=== PATIENT | female | born 1980 | race African-American/Black ===

== ENCOUNTER 2020-06-18 12:53 | Emergency (ER) | payer OTHER, SELFPAY ==
--- OUTSIDE RECORDS SUMMARY | 2020-06-18 12:56 | XMS REPORT | Clinical Summary ---
:1980 Author Organization [facility] Address [address] [place] [address] Care Team Providers Name Role Phone Unavailable Primary Care Provider Unavailable Allergies No Known Allergies Medications Medication Sig Dispensed Refills Start Date End Date Status ibuprofen (MOTRIN) 800 Take 1 tablet by 20 tablet 0 02/06/2019 Active mg tabletIndications: mouth every 6 Vaginal after hours as needed for Pain. ferrous sulfate 325 mg Take 1 tablet by 60 tablet 0 02/06/2019 Active (65 mg iron) mouth daily (with tabletIndications: breakfast). Vaginal after Active Problems Patient Care Coordination Note Polyhydramnios has resolved at 36 weeks Problem Noted Date H/O section 02/04/2019 AMA (advanced maternal age) multigravida 35+ 9 Overview: Patient declined genetic testing. On anatomy sono performed at [facility], single cardiac echogenic focus noted. She received genetic counseling, and risk of T21 was 1:94 based on age and this soft marker. Based on age alone, risk is 1:168 for T21 and 1:82 of any chromo somal disorder. Prior likely LTCS x 1 for PRCD 10/03/2018 Overview: Op note review, prior x 1 2/2 to NRFHT Desires TOLAC, success score is 38. 7 01/21/19: Pt desired repeat C/S. Schedule d for 02/04/19 however after further discussions and time pt desires a TOLAC success is 54% with induction and 64%wi thout Cerclage in Prior but missed GA window in th is - on 10/03/2018 17-OH P Overview: In first , with 22wk loss. Had cerclage in her third which went to term. Was also on 17-OHP. Candidate for history indicated cerclage however pt delayed procedure due to insurance iss ues and now is too late for cerclage joleen cement. Last cervical length 41mm per outside records, will order ultrasound for follow up CL 11/05/2018 Ultrasound showed CL 3.6 cm No further CL measurement indicated S/p weekly 17-OHP until 32wks, discontin ued by MFM Per Dr. Torres 12/31/18, will not re-st art 17-OHP at this time Maternal morbid obesity, BMI 40 10/03/2018 Overview: Regular Glucola at 26-8 weeks: 121 Growth US 32 weeks: >95th%ile; polyhydra mnios testing ordered, read from 10/20 Will be for repeat C/S on 02/04/19 uterine contractions Immunizations Name Administration Dates Next Due Influenza Vaccine 08/12/2016 (Deferred: Patient Refused), 10/21/2014 (Deferred: Contraindication - sick), (Deferred: Patient Refused) Family History Medical History Relation Name Comments No Known Problems Brother No Known Problems Daughter Hypertension Father Lipids Father Diabetes Maternal Grandfather Diabetes Maternal Grandmother No Known Problems Mother Diabetes Paternal Grandfather Diabetes Paternal Grandmother No Known Problems Sister Relation Name Status Comments Brother Alive Daughter Alive Father Alive Maternal Grandfather Maternal Grandmother Mother Alive Paternal Grandfather Paternal Grandmother Sister Alive x2 Social History Tobacco Use Types Packs/Day Years Used Date Never Smoker Smokeless Tobacco: Never Used Tobacco Cessation: Counseling Given: No Alcohol Use Drinks/Week oz/Week Comments Yes social Food Insecurity Answer Date Recorded Within the past 12 months, you worried that your food would Never true 12/11/2018 run out before you got money to buy more. Within the past 12 months, the food you bought just didn't N ever true 12/11/2018 last and you didn't have money to get more. Sex Assigned at Date Recorded Not on file Job Start Date Occupation Industry Not on file Not on file Not on file Travel History Travel Start Travel End No recent travel history available. Last Filed Vital Signs Not on file Plan of Treatment Health Maintenance Due Date Last Done Comments Cervical Cancer Scrn (3 Yrs) 2002 IMM Influenza Seasonal Jul to November (>/= 19 yrs) 07/02/2020 Results Not on fileafter 06/18/2019 Insurance Payer Benefit Plan / Subscriber ID Effective Dates Phone Addre ss Type Group [employer] SELF-PAY xxxxxxxxx 2018-Presen [phone] [id number] [employer] SELF-PAY UNSCREENED [address] [place] [address] [employer] SELF-PA[employer] xxxxxx 2019-20 [phone] [employer] SELF-PAY SCREENED [address] [place] [address] Advance Directives Code Status Date Activated Date Inactivated Comments Full Code 02/05/2019 11:51 AM 02/07/2019 3:22 PM Full Code 02/04/2019 8:27 AM 02/05/2019 11:51 AM
--- OUTSIDE RECORDS SUMMARY | 2020-06-18 12:56 | XMS REPORT | Continuity of Care Document ---
:1980 Author Organization [facility] t Address [address] [place] [address] Care Team Providers Name Role Phone Unavailable Unavailable Unavailable Problems Condition Condition Condition Status Onset Resolution Last Treating Co mments Source Name Details Category Date Date Treatment Clinician Date H/O H/O Disease Active Omar 02-04 Health section section 00:00: 00 AMA AMA Disease Active Overview: Omar (advanced (advanced 10-03 Patient Hea lth maternal maternal 00:00: declined age) age) 00 genetic multigravi multigravi testing.O da 35+ da 35+ n anatomy sono performed at [facility], single cardiac echogenic focus noted. She received genetic counselin g, and risk of T21 was 1:94 based on age and this soft marker. Based on age alone, risk is 1:168 for T21 and 1:82 of any chromosom al disorder. Prior Prior Disease Active Overview: Omar likely likely 10-03 Op note Health LTCS x 1 LTCS x 1 00:00: review, for PRCD for PRCD 00 prior x 1 2/2 to NRFHT Desires TOLAC, success score is 38.7 01/21/19: Pt desired repeat C/S. Scheduled for 02/04/19 however after further discussio ns and time pt desires a TOLAC success is 54% with induction and 64%withou t Cerclage Cerclage Disease Active Overview: [facility] in Prior in Prior 10-03 In first Heal th 00:00: but missed but missed 00 , with GA window GA window 22wk in this in this loss. Had cerclage - on 17-OH - on 17-OH in her P P third which went to term. Was also on 17-OHP. Candidate for history indicated cerclage however pt delayed procedure due to insurance issues and now is too late for cerclage placement . Last cervical length 41mm per outside records, will order ultrasoun d for follow up CL 9Ultrasou nd showed CL 3.6 cmNo further CL measureme nt indicated S/p weekly 17-OHP until 32wks, discontin ued by [facility] 12/31/18, will not re-start 17-OHP at this time Maternal Maternal Disease Active Overview: [facility] morbid morbid - Regular Health obesity, obesity, 00:00: Glucola BMI 40 BMI 40 00 at 26-8 weeks: 121Growth US 32 weeks: >95th%ile ; polyhydra mniosAnte marina testing ordered, read from 12/31/1807/11Wigrayson be for repeat C/S on 02/04/19 Disease Active [facility] uterine uterine Health contractio contractio ns ns Allergies, Adverse Reactions, Alerts This patient has no known allergies or adverse reactions. Family History Family Member Diagnosis Comments Start Date Stop Date Source Natural brother No Known Problems [facility] Natural daughter No Known Problems [facility] Natural father Hypertension [facility] father Lipids [facility] Maternal grandfather Diabetes [facility] Maternal grandmother Diabetes [facility] Natural mother No Known Problems [facility] Paternal grandfather Diabetes [facility] Paternal grandmother Diabetes [facility] Natural sister No Known Problems [facility] Social History Social Habit Start Date Stop Date Quantity Comments Source Sex Assigned At [facility] Alcohol intake 2019-03-19 2019-03-19 Current drinker Ramon bee [facility] 00:00:00 00:00:00 of alcohol (finding) History [facility] Food 2018-12-11 2018-12-11 1 [facility] Worry 00:00:00 00:00:00 History [facility] Food 2018-12-11 2018-12-11 1 [facility] Scarcity 00:00:00 00:00:00 Alcohol Comment 2014-10-21 2014-10-[address] [facility]th 00:00:00 00:00:00 Smoking Status Start Date Stop Date Source Never smoker [facility] Medications Ordered Filled Start Stop Current Ordering Indication Dosage Frequency Signature Comments Components Source Medication Medication Date Date Medication? Clinician (SIG) Name Name ibuprofen Yes Vaginal 800mg Take 1 [facility] (MOTRIN) 5-08 after tablet by [employer] 800 mg 00:00: mouth tablet 00 every 6 hours as needed for Pain. ferrous Yes Vaginal 325mg QD Take 1 [facility] is sulfate 325 5-08 after tablet by [employer] mg (65 mg 00:00: mouth iron) 00 daily tablet (with breakfast) . Procedures This patient has no known procedures. Plan of Care Planned Activity Planned Date Details Comments Source Future Scheduled Test 2020-07-02 00:00:00 IMM Influenza [facility] Seasonal Jul to November (>/= 19 yrs) [code = IMM Influenza Seasonal Jul to November (>/= 19 yrs)] Future Scheduled Test 2002 00:00:00 Screening for [facility] malignant neoplasm of cervix (procedure) [code = 761306676] Encounters Start End Encounter Admission Attending Care Care Encounter Source Date/Time Date/Time Type Type Clinicians Facility Department ID 2019-02-04 Inpatient [facility] [id number] H arris 00:00:00 [facility] 2019-02-04 Inpatient [facility] [id number] H arris 00:00:00 [facility] 2019-01-28 Inpatient [facility] [id number] H arris 00:00:00 [facility] 2019-03-20 2019-03-20 Outpatient [facility] [id number] [place] 00:00:00 00:00:00 [facility] 2019-02-15 2019-02-15 Outpatient [facility] [id number] [place] 15:54:45 15:54:45 [facility] 2019 2019 Outpatient [facility] [id number] [place] 00:00:00 00:00:00 [facility] 2019-02-04 2019-02-04 Inpatient [facility] [id number] [place] 06:46:30 06:46:30 Health 2019-02-04 2019-02-04 Outpatient [facility] [id number] [place] 00:00:00 00:00:00 [facility] 2019-01-28 2019-01-28 Outpatient [facility] [id number] [place] 13:29:05 13:29:05 Health 2019-01-28 2019-01-28 Outpatient [facility] [id number] [place] 00:00:00 00:00:00 [facility] 2019-01-23 2019-01-23 Outpatient [facility] [id number] [place] 00:00:00 00:00:00 [facility] 2019-01-21 2019-01-21 Outpatient [facility] [id number] [place] 12:38:21 12:38:21 [facility] 2019-01-21 2019-01-21 Outpatient [facility] [id number] [place] 10:21:08 10:21:08 [facility] 2019-01-14 2019-01-14 Outpatient [facility] [id number] [place] 11:21:00 11:21:00 [facility] 2019-01-14 2019-01-14 Outpatient [facility] [id number] [place] 10:50:05 10:50:05 [facility] 2019-01-28 2019-01-14 Inpatient [facility] [id number] [place] 15:58:00 00:00:00 [facility] 2019-01-14 2019-01-14 Outpatient [facility] [id number] [place] 00:00:00 00:00:00 [facility] 2019-01-07 2019-01-07 Outpatient [facility] [id number] [place] 10:41:48 10:41:48 [facility] 2018-12-31 2018-12-31 Outpatient [facility] [id number] [place] 12:28:00 12:28:00 [facility] 2018-12-31 2018-12-31 Outpatient [facility] [id number] [place] 10:47:51 10:47:51 [facility] 2018-12-27 2018-12-27 Outpatient [facility] [id number] [place] 00:00:00 00:00:00 [facility] 2018-12-24 2018-12-24 Outpatient [facility] [id number] [place] 14:27:02 14:27:02 [facility] 2018-12-24 2018-12-24 Outpatient [facility] [id number] [place] 00:00:00 00:00:00 [facility] 2018-12-17 2018-12-17 Outpatient [facility] [id number] [place] 14:16:35 14:16:35 [facility] 2018-12-17 2018-12-17 Outpatient [facility] [id number] [place] 13:10:11 13:10:11 [facility] 2018-12-17 2018-12-17 Outpatient [facility] [id number] [place] 09:32:49 09:32:49 [facility] 2018-12-17 2018-12-17 Outpatient [facility] [id number] [place] 00:00:00 00:00:00 [facility] 2018-12-11 2018-12-11 Outpatient [facility] [id number] [place] 13:24:26 13:24:26 [facility] 2018-12-03 2018-12-03 Outpatient [facility] [id number] [place] 10:41:45 10:41:45 [facility] 2018-11-28 2018-11-28 Outpatient [facility] [id number] [place] 00:00:00 00:00:00 [facility] 2018-11-21 2018-11-21 Outpatient [facility] [id number] [place] 10:31:00 10:31:00 [facility] 2018-11-21 2018-11-21 Outpatient [facility] [id number] [place] 09:52:42 09:52:42 [facility] 2018-11-15 2018-11-15 Outpatient [facility] [id number] [place] 09:44:01 09:44:01 [facility] 2018-11-14 2018-11-14 Outpatient [facility] [id number] [place] 00:00:00 00:00:00 [facility] 2018-11-08 2018-11-08 Outpatient [facility] [id number] [place] 09:41:17 09:41:17 [facility] 2018-11-05 2018-11-05 Outpatient [facility] [id number] [place] 14:35:16 14:35:16 [facility] 2018-11-05 2018-11-05 Outpatient [facility] [id number] [place] 00:00:00 00:00:00 [facility] 2018-11-01 2018-11-01 Outpatient [facility] [id number] [place] 10:14:38 10:14:38 [facility] 2018-10-31 2018-10-31 Outpatient [facility] [id number] [place] 00:00:00 00:00:00 [facility] 2018-10-26 2018-10-26 Outpatient [facility] [id number] [place] 00:00:00 00:00:00 [facility] 2018-10-25 2018-10-25 Outpatient [facility] [id number] [place] 14:20:37 14:20:37 [facility] 2018-10-24 2018-10-24 Outpatient [facility] [id number] [place] 10:18:22 10:18:22 [facility] 2018-10-17 2018-10-17 Outpatient [facility] [id number] [place] 10:30:22 10:30:22 [facility] 2018-10-16 2018-10-16 Outpatient [facility] [id number] [place] 00:00:00 00:00:00 Health 2018-10-15 2018-10-15 Outpatient [facility] [id number] [place] 00:00:00 00:00:00 Health 2018-10-14 2018-10-14 Outpatient [facility] [id number] [place] 22:39:03 22:39:03 Health 2018-10-14 2018-10-14 Outpatient [facility] [id number] [place] 00:00:00 00:00:00 Health 2018-10-10 2018-10-10 Outpatient [facility] [id number] [place] 10:58:02 10:58:02 Health 2018-10-10 2018-10-10 Outpatient [facility] [id number] [place] 00:00:00 00:00:00 Health 2018-10-03 2018-10-03 Outpatient [facility] [id number] [place] 15:12:03 15:12:03 Health 2018-09-18 2018-09-18 Outpatient [facility] [id number] [place] 12:11:16 12:11:16 Health Results This patient has no known results.
[2020-06-18 14:28] LABS: Basophils % 0.4 % (0-1.3); Hematocrit 36.1 % (36.0-45.0); MPV 9.5 fL (7.6-11.3); RBC Red Blood Cell Count 4.44 M/uL (3.86-4.86)
[2020-06-18 15:02] LABS: BUN Blood Urea Nitrogen 11 mg/dL (7-18); Bicarbonate 27 mmol/L (21-32); Glucose Level 90 mg/dL (74-106); HCG, Quantitative 6900 mIU/mL (1-3); Potassium 3.7 mmol/L (3.5-5.1); Sodium Level 139 mmol/L (136-145)
[2020-06-18 15:28] LABS: Urine Blood 2+ (NEG); Urine Glucose NEGATIVE (NEG); Urine Protein NEGATIVE (NEG); Urine Specific Gravity 1.025 (1.005-1.030)
--- NOTE | 2020-06-18 16:21 | EDPHYS ---
Physician Documentation [facility] Name: Genna Mon Age: 40 yrs Sex: Female : 1980 Arrival Date: 06/18/2020 Time: 12:56 Bed 23 Private MD: ED Physician Darrin Mejia HPI: 06/18 14:17 This 40 yrs old Black Female presents to ER via Ambulatory with complaints of Vaginal kb Bleeding, + Preg <12wks, Abdominal Cramping. 14:17 The patient presents to the emergency department with vaginal bleeding, that is light. kb The estimated gestational age is 11 weeks. course: care: private OB physician, Leakage of Fluid: none appreciated, Ultrasound: the patient has not had an ultrasound, Risk/complications: no obvious risks or complications are appreciated. Previous pregnancies: in previous pregnancies patient has had vaginal delivery, . Associated signs and symptoms: Pertinent positives: vaginal bleeding, Pertinent negatives: abdominal pain. The patient has not experienced similar symptoms in the past. The patient has not recently seen a physician. DITCHER: 13:07 LMP 04/2020 em 14:17 5, 2, Living 2 kb Historical: - Allergies: 13:07 No Known Allergies; em - Home Meds: 13:07 None [Active]; em - PMHx: 13:07 None; em - PSHx: 13:07 None; em - Immunization history:: Last tetanus immunization: up to date Flu vaccine is not up to date. - Social history:: Smoking status: Patient denies any tobacco usage or history of. ROS: 14:16 Constitutional: Negative for fever, chills, and weight loss, Cardiovascular: Negative kb for chest pain, palpitations, and edema, Respiratory: Negative for shortness of breath, cough, wheezing, and pleuritic chest pain, Abdomen/GI: Negative for abdominal pain, nausea, vomiting, diarrhea, and constipation, Back: Negative for injury and pain, MS/Extremity: Negative for injury and deformity, Skin: Negative for injury, rash, and discoloration, Neuro: Negative for headache, weakness, numbness, tingling, and seizure. 14:16 : Positive for vaginal bleeding. Exam: 14:16 Constitutional: This is a well developed, well nourished patient who is awake, alert, kb and in no acute distress. Head/Face: Normocephalic, atraumatic. Chest/axilla: Normal chest wall appearance and motion. Nontender with no deformity. No lesions are appreciated. Cardiovascular: Regular rate and rhythm with a normal S1 and S2. No gallops, murmurs, or rubs. Normal PMI, no JVD. No pulse deficits. Respiratory: Lungs have equal breath sounds bilaterally, clear to auscultation and percussion. No rales, rhonchi or wheezes noted. No increased work of breathing, no retractions or nasal flaring. Abdomen/GI: Soft, non-tender, with normal bowel sounds. No distension or tympany. No guarding or rebound. No evidence of tenderness throughout. Back: No spinal tenderness. No costovertebral tenderness. Full range of motion. Skin: Warm, dry with normal turgor. Normal color with no rashes, no lesions, and no evidence of cellulitis. MS/ Extremity: Pulses equal, no cyanosis. Neurovascular intact. Full, normal range of motion. Neuro: Awake and alert, GCS 15, oriented to person, place, time, and situation. Cranial nerves II-XII grossly intact. Motor strength 5/5 in all extremities. Sensory grossly intact. Cerebellar exam normal. Normal gait. Vital Signs: 13:03 BP 140 / 86; Pulse 77; Resp 18; Temp 98.8; Pulse Ox 99% on R/A; Weight 99.79 kg; Height em 5 ft. 2 in. (157.48 cm); Pain 2/10; 14:05 BP 108 / 53; Pulse 70; Resp 17; Pulse Ox 100% on R/A; tw2 15:02 BP 120 / 72; Pulse 68; Resp 17; Pulse Ox 100% on R/A; tw2 16:25 BP 123 / 80; Pulse 68; Resp 17; Pulse Ox 100% on R/A; tw2 13:03 Body Mass Index 40.24 (99.79 kg, 157.48 cm) em MDM: 13:52 Patient medically screened. kb 14:16 Data reviewed: vital signs, nurses notes. Data interpreted: Pulse oximetry: on room air kb is 99 %. Interpretation: normal. 16:19 Counseling: I had a detailed discussion with the patient and/or guardian regarding: the kb historical points, exam findings, and any diagnostic results supporting the discharge/admit diagnosis, lab results, radiology results, the need for outpatient follow up, an OB/Gyne specialist, to return to the emergency department if symptoms worsen or persist or if there are any questions or concerns that arise at home. 06/18 13:07 Order name: Quantitative Hcg; Complete Time: 15:06 kb 06/18 13:07 Order name: Abo/rh Typing; Complete Time: 15:06 kb 06/18 13:07 Order name: Basic Metabolic Panel; Complete Time: 15:06 kb 06/18 13:07 Order name: CBC with Diff; Complete Time: 14:33 kb 06/18 14:45 Order name: Urine Dipstick--Ancillary (enter results); Complete Time: 15:30 em1 06/18 14:45 Order name: Urine --Ancillary (enter results); Complete Time: 15:30 em1 06/18 13:07 Order name: Urine Test (obtain specimen); Complete Time: 14:44 kb 06/18 13:07 Order name: IV Saline Lock; Complete Time: 14:07 kb 06/18 13:07 Order name: Labs collected and sent; Complete Time: 14:07 kb 06/18 13:07 Order name: NPO; Complete Time: 15:09 kb 06/18 13:07 Order name: Urine Dipstick-Ancillary (obtain specimen); Complete Time: 14:44 kb 06/18 15:31 Order name: US Transvaginal Ob kb Administered Medications: No medications were administered Disposition: 06/19 14:03 Co-signature as Attending Physician, Darrin Mejia MD I agree with the assessment and kdr plan of care. Disposition: 06/18/20 16:20 Discharged to Home. Impression: Threatened . - Condition is Stable. - Discharge Instructions: Threatened Miscarriage, Jvac-[id number]. - Medication Reconciliation Form, Thank You Letter, Antibiotic Education, Prescription Opioid Use form. - Follow up: Emergency Department; When: As needed; Reason: Worsening of condition. Follow up: Private Physician; When: 2 - 3 days; Reason: Recheck today's complaints, Continuance of care, Re-evaluation by your physician. Signatures: [facility] K[facility]in Rod, AREA ATTENDANT-C AREA ATTENDANT-Darrin Renteria MD MD kdr Munoz, Edgar, RN RN Jeanette Avila RN RN tw2 Corrections: (The following items were deleted from the chart) 06/18 16:33 16:20 06/18/2020 16:20 Discharged to Home. Impression: Threatened . Condition tw2 is Stable. Forms are Medication Reconciliation Form, Thank You Letter, Antibiotic Education, Prescription Opioid Use. Follow up: Emergency Department; When: As needed; Reason: Worsening of condition. Follow up: Private Physician; When: 2 - 3 days; Reason: Recheck today's complaints, Continuance of care, Re-evaluation by your physician. kb
--- NOTE | 2020-06-18 16:21 | ER ---
Nurse's Notes [facility] Name: Genna Mon Age: 40 yrs Sex: Female : 1980 Arrival Date: 06/18/2020 Time: 12:56 Bed 23 Private MD: Diagnosis: Threatened Presentation: 06/18 13:03 Chief complaint: Patient states: being 11 weeks , yesterday had brown spotting em and this morning had spotting this morning, denies passing clots, has only had to use a panty liner, denies N/V or fever, reports lower abd pain described as cramping. Coronavirus screen: Client denies travel out of the [place] in the last 14 days. Ebola Screen: Patient negative for fever greater than or equal to 101.5 degrees Fahrenheit, and additional compatible Ebola Virus Disease symptoms Patient denies exposure to infectious person. Patient denies travel to an Ebola-affected area in the 21 days before illness onset. No symptoms or risks identified at this time. Initial Sepsis Screen: Does the patient meet any 2 criteria? No. Patient's initial sepsis screen is negative. Does the patient have a suspected source of infection? No. Patient's initial sepsis screen is negative. Risk Assessment: Do you want to hurt yourself or someone else? Patient reports no desire to harm self or others. Onset of symptoms was April 2020. 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 - Social history:: Smoking status: Patient denies any tobacco usage or history of. Screenin:14 Abuse screen: Denies threats or abuse. Nutritional screening: No deficits noted. tw2 Tuberculosis screening: No symptoms or risk factors identified. Fall Risk None identified. Assessment: 14:05 General: Appears in no apparent distress. obese, well groomed, Behavior is calm, tw2 cooperative, appropriate for age. Pain: Denies pain. Neuro: Level of Consciousness is awake, alert, obeys commands, Oriented to person, place, time, situation. Cardiovascular: Heart tones S1 S2 Patient's skin is warm and dry. Respiratory: Airway is patent Respiratory effort is even, unlabored, Respiratory pattern is regular, symmetrical, Breath sounds are clear bilaterally. GI: No signs and/or symptoms were reported involving the gastrointestinal system. Abdomen is round non-distended, obese, Bowel sounds present X 4 quads. : Reports "just some spotting that is brown". EENT: No signs and/or symptoms were reported regarding the EENT system. Derm: No signs and/or symptoms reported regarding the dermatologic system. Musculoskeletal: Range of motion: intact in all extremities. 15:02 Reassessment: Patient appears in no apparent distress at this time. No changes from tw2 previously documented assessment. Patient and/or family updated on plan of care and expected duration. Pain level reassessed. Patient is alert, oriented x 3, equal unlabored respirations, skin warm/dry/pink. 16:25 Reassessment: Patient appears in no apparent distress at this time. No changes from tw2 previously documented assessment. Patient and/or family updated on plan of care and expected duration. Pain level reassessed. Patient is alert, oriented x 3, equal unlabored respirations, skin warm/dry/pink. Vital Signs: 13:03 BP 140 / 86; Pulse 77; Resp 18; Temp 98.8; Pulse Ox 99% on R/A; Weight 99.79 kg; Height em 5 ft. 2 in. (157.48 cm); Pain 2/10; 14:05 BP 108 / 53; Pulse 70; Resp 17; Pulse Ox 100% on R/A; tw2 15:02 BP 120 / 72; Pulse 68; Resp 17; Pulse Ox 100% on R/A; tw2 16:25 BP 123 / 80; Pulse 68; Resp 17; Pulse Ox 100% on R/A; tw2 13:03 Body Mass Index 40.24 (99.79 kg, 157.48 cm) em ED Course: 12:56 Patient arrived in ED. mr 13:06 Triage completed. em 13:07 [facility] kb 13:07 Darrin Mejia MD is Attending Physician. kb 13:07 Arm band placed on. em 13:56 Jeanette Lund, RN is Primary Nurse. tw2 14:03 Inserted saline lock: 20 gauge in right antecubital area, using aseptic technique. tw2 Blood collected. 14:05 Placed in gown. Bed in low position. Pulse ox on. NIBP on. Warm blanket given. tw2 16:17 US Transvaginal Ob In Process Unspecified. EDMS 16:31 No provider procedures requiring assistance completed. IV discontinued, intact, tw2 bleeding controlled, No redness/swelling at site. Pressure dressing applied. Administered Medications: No medications were administered Outcome: 16:20 Discharge ordered by MD. kb 16:31 Discharged to home ambulatory. tw2 16:31 Condition: stable 16:31 Discharge instructions given to patient, Instructed on discharge instructions, follow up and referral plans. Demonstrated understanding of instructions, follow-up care. 16:33 Patient left the ED. tw2 Signatures: Dispatcher [employer] EDFL Kirstin Randle, JERRI-C JERRI-Dee Ledezma Edgar, RN RN em Jeanette Lund, RN RN tw2
--- NOTE | 2020-06-18 16:35 | RAD REPORT ---
EXAM DESCRIPTION: US - Transvaginal OB - 06/18/2020 4:17 pm CLINICAL HISTORY: ABD CRAMPING, COMPARISON: No comparisons FINDINGS: Normal shaped intrauterine gestational sac is identified. No intrauterine hematoma or mass . [place]-rump length corresponds to an 8 week 6 day size. Prolonged sonographic evaluation failed to i dentify any cardiac activity. No uterine myometrial abnormality identified. No blood or fluid in the cul de sac. Both ovaries were obscured by bowel. No adnexal abnormalities identifiable. IMPRESSION: Intrauterine demise.
[2020-06-18 17:26] VITALS: TEMP 98.8
[2020-06-18 17:28] VITALS: O2SAT 100
[2020-06-18 17:30] VITALS: BP 123/80
== END 2020-06-18 16:33 | disposition home or self-care (01) ==
LOC: ER 12:53
DX: O20.0 Threatened abortion (principal); Z3A.11 11 weeks gestation of pregnancy
CPT/HCPCS: 36415; 76817; 80048; 81003; 81025; 84702; 85025; 86900; 86901; 99284